=== PATIENT | female | born 1970 | race Caucasian/White ===

== ENCOUNTER 2023-03-05 10:45 | Outpatient (OUT) | payer BC, SELFPAY ==
[2023-03-05 12:13] LABS: INR 0.97; Partial Thromboplastin Time 30.4 sec (22.3-36.2); Prothrombin Time 10.3 sec (9.0-11.6)
== END 2023-03-05 10:46 | disposition home or self-care (01) ==
PROVIDERS: PCP Urology; Visit Provider Urology
DX: Z01.812 Encounter for preprocedural laboratory examination (principal); N13.2 Hydronephrosis with renal and ureteral calculous obstruction; E11.9 Type 2 diabetes mellitus without complications; Z79.01 Long term (current) use of anticoagulants; I25.2 Old myocardial infarction
CPT/HCPCS: 85610; 85730

== ENCOUNTER 2023-03-20 11:31 | Day surgery (SDC) | payer BC, SELFPAY ==
[2023-03-05 11:45] VITALS: BP 112/77; PULSE 82; RESP 18; TEMP 36.3; O2SAT 99; BMI 22.2
[2023-03-20] VITALS (10 sets, daily range): BP systolic 93–125; BP diastolic 59–81; PULSE 82–92; RESP 10–20; TEMP 35.8–36.6; O2SAT 87–100; BMI 22.3
--- NOTE | 2023-03-20 11:30 | XR_ITS ---
The [address] [address] Patient Name: MITCHELL COLVIN MRN: [id number] date: 1970 Sex: F Assigned Patient Location: [facility] Current Patient Location: Accession/Order Number: [id number] Exam Date: 03/20/2023 11:43 Report Date: 03/22/2023 08:51 At the request of: KI PARISH Procedure: XR abdomen 1V EXAMINATION: XR abdomen 1V HISTORY: kidney stones COMPARISON: No relevant comparison available. FINDINGS: KIDNEY/URETER - RIGHT: No visible renal or ureteral calcifications. KIDNEY/URETER - LEFT: multiple nephroliths measuring up to 10 mm along the lower pole. Double-J ureteral stent in normal position PELVIS: No visible ureteral calcifications. Any visible calcifications favor phleboliths. BOWEL: No abnormal dilation or deviation. BONES: No acute abnormality. OTHER: Negative. No abnormal gaseous collections. XR/XR abdomen 1V IMPRESSION: Left nephrolithiasis with ureteral stent Electronically authenticated by: BRITTANY NERI Date: 03/22/2023 08:51
[2023-03-20] MEDS: LACTATED RINGER'S SOLUTION 1,000 ML 50 ML IV ×4 (12:20→15:32)
[2023-03-20] MEDS: CEFAZOLIN SODIUM/DEXTROSE,ISO 2 GM/50 ML PIGGYBACK IV (12:46)
[2023-03-20] MEDS: SCOPOLAMINE 1 MG/3 DAYS TRANSDERM PATCH 1 PATCH TD (12:53)
[2023-03-20] MEDS: IOHEXOL 300 MG/ML - 50 ML BTL INJ (14:07)
--- NOTE | 2023-03-20 14:37 | PM.URSON ---
Urology Surgery Operative Note Operative Note Procedure Date: 03/20/23 Time Out Performed: yes Pre-op Diagnosis: 1. Left distal ureteral stone 2. Left kidney stones Post-op Diagnosis: same as pre-op Procedures performed: 1. Cystoscopy, left retrograde pyelogram, ureteroscopy stone basket extraction, stent exchange 2. Left renoscopy with laser lithotripsy/stone basket extraction Anesthesia: General-ET (Debi Clark CRNA) Primary Surgeon: Mel Brody Complications: none Estimated blood loss (mL): 0 Findings: Large radiopaque left lower pole stone underwent uncomplicated laser lithotripsy/stone extraction. 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 She was evaluated in clinic and elected to proceed with definitive stone treatment as above. Repeat urine culture negative. After discussion of risks/benefits of management options, she elected to proceed with cystoscopy, left retrograde pyelogram, ureteroscopy/renoscopy with laser lithotripsy/stone extraction, ureteral stent exchange under general anesthesia. Risks were discussed including but not limited to bleeding, pain, infection, damage to surrounding structures, inability to treat the stone/place a stent, and need for additional procedures. The patient understands the stent is not permanent and needs to be removed or exchanged within 3 months to prevent encrustation, infection, invasive procedures and/or permanent renal damage. Detailed description of Procedure: After informed consent was obtained, the patient was brought to the operating room and transferred onto the operating table in supine position. Sequential compression devices were placed on bilateral lower extremities. The patient received the appropriate dose of preoperative IV antibiotics and general anesthesia ET tube was induced. They were positioned in modified dorsolithotomy with the appropriate pressure points padded, prepped, and draped in the usual sterile fashion for this procedure. An operative safety timeout was performed confirming the patient's identity, laterality and procedure, and all present agreed to proceed. I began by inserting a 22 [place] rigid cystoscope with 30 degree lens into the patient's urethra and bladder without difficulty. There were no bladder tumors, lesions, stones. Bilateral ureteral orifices were orthotopic and patent. I turned my attention to the left ureteral orifice and brought the indwelling stent to the meatus. A Sensor wire was inserted into the stent up to the renal pelvis confirmed on fluoroscopy, and stent was removed. Next a semirigid ureteroscope was inserted along the wire to get access to the distal ureteral stone. A 1.8 zero tip basket was used to remove the stone fragments without difficulty. Ureteroscopy up to the UPJ confirmed no ureteral stones. The ureteroscope was removed. An 11/13 [place]ian by 36 cm ureteral access sheath was inserted over the wire in a sequential fashion to gain access to the renal pelvis. Next a flexible ureteroscope was inserted through the sheath and advanced to the renal pelvis. The prior UPJ stone was now in the lower pole. A 270 ?m Thulium/YAG laser fiber was used to break the stone into fragments which were then removed with a basket. After the stone was adequately treated, a full renoscopy was performed removing any residual fragments and ensured no significant fragments remained. Contrast was injected to assist with mapping for the renoscopy. The wire was reinserted and a pull down ureteroscopy was performed confirming no stones remained in the ureter. A 4.9Fr x 22-32cm JJ variable length ureteral stent on a string was advanced over the wire, noting adequate curl in the renal pelvis and bladder on fluoroscopic and direct visualization. The bladder was drained and inspected one final time to ensure adequate position of stent and no undue trauma to the bladder was done. The stones were sent for pathology and the cystoscope was removed. The string was secured to the left thigh with Tegaderm dressing. The patient tolerated the procedure well without complication. The patient was awakened from anesthesia and sent to PACU in stable condition. Plan: Discharge home with stent pain medications. Remove stent by the string at home in 4 days. Follow up in 6 weeks with renal US. Other Provider present: No Post Operative care instructions: See discharge instructions Attending Doc Confirm Attending Attestation: Yes
[2023-03-20] MEDS: LACTATED RINGER'S SOLUTION 1,000 ML 75 ML IV (15:05)
[2023-03-20] MEDS: MEPERIDINE HCL/PF 25 MG/ML VIAL IV (15:34)
[2023-04-03 02:07] LABS: Calcium Oxalate Dihydrate 20 % (.); Calcium Oxalate Monohydrate 80 % (.); Size 8x5 mm (.)
== END 2023-03-20 16:00 | disposition home or self-care (01) ==
PROVIDERS: Visit Provider Urology
PROC: (CPT 918; principal; 2023-03-20 12:30)
DX: N13.2 Hydronephrosis with renal and ureteral calculous obstruction (principal); E11.9 Type 2 diabetes mellitus without complications; Z79.01 Long term (current) use of anticoagulants; I25.2 Old myocardial infarction; Z87.440 Personal history of urinary (tract) infections; E11.42 Type 2 diabetes mellitus with diabetic polyneuropathy; M79.7 Fibromyalgia; E55.9 Vitamin D deficiency, unspecified; Z90.710 Acquired absence of both cervix and uterus; Z79.82 Long term (current) use of aspirin; Z79.85 Long-term (current) use of injectable non-insulin antidiabetic drugs; I25.10 Atherosclerotic heart disease of native coronary artery without angina pectoris; Z95.5 Presence of coronary angioplasty implant and graft; Z87.891 Personal history of nicotine dependence
CPT/HCPCS: 52356; 36415; 74018; 74420; 82365; 99999; J2704; Q9967